=== PATIENT | male | born 1975 | race African-American/Black ===

== ENCOUNTER 2019-12-10 20:57 | Emergency (ER) | payer OTHER ==
[~2019-12-10] VITALS: Ht 182.9 cm; Wt 68.0 kg
[2019-12-10] MEDS ORDERED: LR 1000ml 1,000 ML IV SCH (21:00)
--- NOTE | 2019-12-10 21:00 | NUR ---
ED Nurse Note: Patient was brought in by RA Joel from a bus stop with c/o hyperglycemia. Patient is diabetic and has maintenance meds but was not med compliant for the past few days. Bedside BS 516. Patient denies chestpain, SOB/, abdominal pain, confusion or weakness. Patient is AAox4 and ambulatory. Placed on monitor bed
--- NOTE | 2019-12-10 21:05 | NUR ---
ED Nurse Note: ERMD seen pt
--- NOTE | 2019-12-10 21:20 | NUR ---
ED Nurse Note: Blood, urine and rapid covid test sent to lab.
[2019-12-10 21:35] LABS: BASOPHILS % (AUTO) 1.1 % (0.0-2.0); EOSINOPHILS % (AUTO) 1.3 % (0.0-3.0); HEMOGLOBIN 14.3 G/DL (14.2-18.0); LYMPHOCYTES % (AUTO) 35.3 % (20.0-45.0); MEAN CORPUSCULAR VOLUME 93 FL (80-99); NEUTROPHILS % (AUTO) 54.3 % (45.0-75.0); PLATELET COUNT 255 K/UL (150-450); RED BLOOD COUNT 4.54 M/UL (4.70-6.10); RED CELL DISTRIBUTION WIDTH 11.5 % (11.6-14.8); WHITE BLOOD COUNT 4.8 K/UL (4.8-10.8)
[2019-12-10 21:36] LABS: APPEARANCE,URINE CLEAR; BILIRUBIN, URINE NEGATIVE (NEGATIVE); COLOR,URINE PALE YELLOW; GLUCOSE, URINE (UA) 4+ (NEGATIVE); KETONES,URINE NEGATIVE (NEGATIVE); LEUKOCYTE ESTERASE ,URINE NEGATIVE (NEGATIVE); NITRITE,URINE NEGATIVE (NEGATIVE); PH,URINE 6.5 (4.5-8.0); PROTEIN,URINE 1+ (NEGATIVE); UROBILINOGEN,URINE NORMAL MG/DL (0.0-1.0)
[2019-12-10 21:52] VITALS: BP 121/78
--- NOTE | 2019-12-10 21:54 | Diagnostic Imaging Report ---
EXAM: XR Chest, 1 View CLINICAL HISTORY: ALOC TECHNIQUE: Frontal view of the chest. COMPARISON: None available. FINDINGS: Lungs: Unremarkable. No consolidation. Pleural space: Unremarkable. No pneumothorax. Heart: Unremarkable. No cardiomegaly. Mediastinum: Unremarkable. Bones/joints: Unremarkable. IMPRESSION: No acute cardiopulmonary disease.
[2019-12-10 22:01] LABS: ALANINE AMINOTRANSFERASE 25 U/L (12-78); ALBUMIN 3.5 G/DL (3.4-5.0); ALBUMIN/GLOBULIN RATIO 0.8 (1.0-2.7); ALKALINE PHOSPHATASE 85 U/L (46-116); ANION GAP 5 mmol/L (5-15); ASPARTATE AMINO TRANSFERASE 21 U/L (15-37); BILIRUBIN,TOTAL 0.3 MG/DL (0.2-1.0); BLOOD UREA NITROGEN 16 mg/dL (7-18); CALCIUM 8.8 MG/DL (8.5-10.1); CARBON DIOXIDE 31 MMOL/L (21-32); CHLORIDE 100 MMOL/L (98-107); CKMB 2.1 NG/ML (0.0-3.6); CREATINE KINASE 411 U/L (26-308); CREATININE 1.4 MG/DL (0.55-1.30); FERRITIN 21 NG/ML (8-388); LACTATE DEHYDROGENASE 166 U/L (81-234); POTASSIUM 4.1 MMOL/L (3.5-5.1); SODIUM 136 MMOL/L (136-145)
--- NOTE | 2019-12-10 22:36 | Emergency Room Report ---
History of Present Illness General Chief Complaint: Abnormal Labs Source: Patient Present Illness HPI Patient presents via EMS. He states he feels weak. EMS found his blood sugar to be elevated above 500. The patient claims to have diabetes and has not used Lantus for the last 2 days. He states he ran out. Denies any pain in his body. His polyuria and polydipsia. He denies fevers or chills. He denies chest pain, cough, nausea, vomiting, diarrhea or dysuria. The patient had denied you and use of drugs or alcohol with paramedics but then admits to drinking alcohol. He denies use of drugs. The patient states he was admitted to [facility] in the ICU last week. The patient denies exposure to COVID-19 positive contacts. Usually lives in a house but has been staying on the streets. No sore throat, chest pain, palpitations, nausea, vomiting, diarrhea, dysuria, abdominal pain, shortness of breath, joint pain, rashes, depression, anxiety, visual changes, dizziness, headache. Allergies: Coded Allergies: No Known Allergies (Unverified , 12/10/19) COVID-19 Screening Contact w/high risk pt: No Experienced COVID-19 symptoms?: No COVID-19 Testing performed CLEANER WALL: Yes COVID-19 Screening: Negative COVID-19 COVID-19 Testing Source: november 25 2019 Patient History Past Medical History: see triage record Social History: Reports: smoking, alcohol use; Denies: drug use - See tox screen Social History Narrative From home but staying on the streets Reviewed Nursing Documentation: PMH: Agreed; PSxH: Agreed Nursing Documentation-PM Past Medical History: No History, Except For Hx Diabetes: Yes Review of Systems All Other Systems: negative except mentioned in HPI Physical Exam Vital Signs Date Time Temp Pulse Resp B/P (MAP) Pulse Ox O2 Delivery O2 Flow Rate FiO2 12/10/19 20:53 98.2 95 18 117/78 (91) 96 Sp02 EP Interpretation: reviewed, normal General Appearance: well appearing, no apparent distress, GCS 15 Head: normocephalic Eyes: bilateral eye other - Wearing dark glasses ENT: moist mucus membranes Neck: supple Respiratory: lungs clear, normal breath sounds Cardiovascular #1: regular rate, rhythm, no edema Cardiovascular #2: 2+ radial (R) Gastrointestinal: normal inspection, normal bowel sounds, non tender, no mass, non-distended, scaphoid Genitourinary: no CVA tenderness Musculoskeletal: back normal, normal range of motion, moves extm spontaneously Neurologic: alert, oriented x3, grossly normal Psychiatric: mood/affect normal Skin: no rash, warm/dry Medical Decision Making Diagnostic Impression: Primary Impression: Hyperglycemia Additional Impression: PCP (phencyclidine) abuse ER Course Patient presents with weakness and elevated blood sugar with history of noncompliance. Differential includes diabetic ketoacidosis, hyperglycemia, electrolyte imbalance, renal failure, occult infection, acute myocardial infarction amongst others. Patient evaluated with EKG, chest x-ray and labs. Patient treated with IV hydration. Patient placed on a drywall sander. EKG without injury. Chest x-ray no infiltrate. Labs with hyperglycemia without metabolic acidosis. Urine tox screen positive for PCP. CBC normal. Repeat accucheck after bolus 516. Continued hydration and IV insulin bolus given. Accu-Chek after bolus of insulin was 274. Discussed results with patient. Discussed the importance of continuing insulin treatments and abstaining from PCP. Patient understands the need for taking care of himself. No apparent emergency at this time. Patient stable for outpatient observation and treatment. Laboratory Tests Test 12/10/19 20:20 White Blood Count 4.8 K/UL (4.8-10.8) Red Blood Count 4.54 M/UL (4.70-6.10) L Hemoglobin 14.3 G/DL (14.2-18.0) Hematocrit 42.0 % (42.0-52.0) Mean Corpuscular Volume 93 FL (80-99) Mean Corpuscular Hemoglobin 31.5 PG (27.0-31.0) H Mean Corpuscular Hemoglobin Concent 34.1 G/DL (32.0-36.0) Red Cell Distribution Width 11.5 % (11.6-14.8) L Platelet Count 255 K/UL (150-450) Mean Platelet Volume 6.3 FL (6.5-10.1) L Neutrophils (%) (Auto) 54.3 % (45.0-75.0) Lymphocytes (%) (Auto) 35.3 % (20.0-45.0) Monocytes (%) (Auto) 8.0 % (1.0-10.0) Eosinophils (%) (Auto) 1.3 % (0.0-3.0) Basophils (%) (Auto) 1.1 % (0.0-2.0) Prothrombin Time 10.7 SEC (9.30-11.50) Prothrombin Time INR 1.0 (0.9-1.1) Activated Partial Thromboplast Time 26 SEC (23-33) D-Dimer 0.20 mg/L FEU (0.00-0.49) Urine Color Pale yellow Urine Appearance Clear Urine pH 6.5 (4.5-8.0) Urine Specific [place] 1.010 (1.005-1.035) Urine Protein 1+ (NEGATIVE) H Urine Glucose (UA) 4+ (NEGATIVE) H Urine Ketones Negative (NEGATIVE) Urine Blood Negative (NEGATIVE) Urine Nitrite Negative (NEGATIVE) Urine Bilirubin Negative (NEGATIVE) Urine Urobilinogen Normal MG/DL (0.0-1.0) Urine Leukocyte Esterase Negative (NEGATIVE) Urine RBC 0-2 /HPF (0 - 0) H Urine WBC 0 /HPF (0 - 0) Urine Squamous Epithelial Cells None /LPF (NONE/OCC) Urine Bacteria Occasional /HPF (NONE) Urine Mucus Moderate /LPF (NONE/OCC) H Sodium Level 136 MMOL/L (136-145) Potassium Level 4.1 MMOL/L (3.5-5.1) Chloride Level 100 MMOL/L (98-107) Carbon Dioxide Level 31 MMOL/L (21-32) Anion Gap 5 mmol/L (5-15) Blood Urea Nitrogen 16 mg/dL (7-18) Creatinine 1.4 MG/DL (0.55-1.30) H Estimated Glomerular Filtration Rate > 60 mL/min (>60) Glucose Level 593 MG/DL (74-106) *H Lactic Acid Level 1.40 mmol/L (0.4-2.0) Calcium Level 8.8 MG/DL (8.5-10.1) Magnesium Level 2.0 MG/DL (1.8-2.4) Ferritin 21 NG/ML (8-388) Total Bilirubin 0.3 MG/DL (0.2-1.0) Aspartate Amino Transferase (AST) 21 U/L (15-37) Alanine Aminotransferase (ALT) 25 U/L (12-78) Alkaline Phosphatase 85 U/L (46-116) Lactate Dehydrogenase 166 U/L (81-234) Total Creatine Kinase 411 U/L (26-308) H Creatine Kinase MB 2.1 NG/ML (0.0-3.6) Creatine Kinase MB Relative Index 0.5 Troponin I 0.000 ng/mL (0.000-0.056) C-Reactive Protein, Quantitative 0.5 mg/dL (0.00-0.90) Pro-B-Type Natriuretic Peptide 8 pg/mL (0-125) Total Protein 7.9 G/DL (6.4-8.2) Albumin 3.5 G/DL (3.4-5.0) Globulin 4.4 g/dL Albumin/Globulin Ratio 0.8 (1.0-2.7) L Lipase 208 U/L (73-393) Urine Opiates Screen Negative (NEGATIVE) Urine Barbiturates Screen Negative (NEGATIVE) Phencyclidine (PCP) Screen Positive (NEGATIVE) H Urine Amphetamines Screen Negative (NEGATIVE) Urine Benzodiazepines Screen Negative (NEGATIVE) Urine Cocaine Screen Negative (NEGATIVE) Urine Marijuana (THC) Screen Negative (NEGATIVE) Serum Alcohol < 3 mg/dL Microbiology Date/Time Source Procedure Growth Status 12/10/19 20:20 Nasopharynx SARS-CoV-2 RdRp Gene Assay - Final Complete EKG Diagnostic Results Rate: normal Rhythm: NSR ST Segments: no acute changes Rhythm Strip Diag. Results EP Interpretation: yes Rhythm: NSR, no PVC's, no ectopy Chest X-Ray Diagnostic Results Chest X-Ray Diagnostic Results : Chest X-Ray Ordered: Yes # of Views/Limited/Complete: 1 View Indication: Other EP Interpretation: Yes Interpretation: no consolidation, no effusion, no pneumothorax Impression: No acute disease Electronically Signed by: Electronically signed by Malcolm Toth MD Last Vital Signs Date Time Temp Pulse Resp B/P (MAP) Pulse Ox O2 Delivery O2 Flow Rate FiO2 12/11/19 00:10 98.0 88 20 121/78 98 Room Air Status: improved Disposition: HOME, SELF-CARE Condition: Improved Scripts Insulin Glargine (LANTUS) 100 Unit/1 Ml Insuln.pen 10 UNITS SUBQ BID, #1 EA 1 Refill 10 units in AM, 20 units HS Prov: Malcolm Toth MD 12/10/19 Referrals: NON PHYSICIAN (PCP) Malcolm Toth MD Dec 10, 2019 22:36
--- NOTE | 2019-12-10 22:40 | NUR ---
ED Nurse Note: Repeat BS 516 - ERMD notified HR 10 units/IV given
[2019-12-10] MEDS ORDERED: Insulin Human Regular 100units/ml 3ml IV ONE (22:45)
[2019-12-10] MEDS ORDERED: LANTUS SOL100 UNIT/1 SUBQ (23:29)
[2019-12-11 00:10] VITALS: BP 121/78
--- NOTE | 2019-12-11 00:10 | NUR ---
ER DISCHARGE NOTE: Patient is cleared to be discharged per ERMD, pt is aox4, on room air, with stable vital signs. pt was given dc and prescription instructions, pt was able to verbalize understanding, pt id band and iv site removed without complications. pt is able to ambulate with steady gait. pt took all belongings.
== END 2019-12-11 00:10 | disposition home or self-care (01) ==
LOC: EDBD 20:57 → EMR 21:16
DX: E11.65 Type 2 diabetes mellitus with hyperglycemia (principal); F16.10 Hallucinogen abuse, uncomplicated; F17.200 Nicotine dependence, unspecified, uncomplicated
CPT/HCPCS: 36415; 71045; 80053; 80307; 81003; 82550; 82553; 82728; 83605; 83615; 83690; 83735; 83880; 84484; 85025; 85379; 85610; 85730; 86140; 93005; 96361; 96374; G0480; J1815; J7030; U0002; Z7502; 99284